=== PATIENT | female | born 1950 | race Caucasian/White ===

== ENCOUNTER 2020-11-20 08:28 | Outpatient (REF) | payer MEDICARE, OTHER, SELFPAY | END 2020-11-20 08:29 | disposition home or self-care (01) | LOC: HO.LAB 08:28 | PROVIDERS: PCP Internal Medicine; Visit Provider Internal Medicine | DX: Z20.822 Contact with and (suspected) exposure to COVID-19 (principal) | CPT/HCPCS: C9803; U0003; U0005 ==

== ENCOUNTER 2023-06-29 19:19 | Emergency (ER) | payer MEDICARE, OTHER, SELFPAY ==
--- NOTE | ~2023-06-29 | CT_ITS ---
EXAMINATION: CT HEAD WITHOUT CONTRAST CLINICAL INFORMATION: Fall. Head trauma. COMPARISON: Previous head CT most recent January 2019 TECHNIQUE: Contiguous axial imaging was performed from the skull base to vertex without intravenous administration of contrast. This CT examination was performed using dose optimization techniques as appropriate, variously including the following: *Automated exposure control *Adjustment of mA and/or kV according to patient size (this includes techniques or standardized protocols for targeted exams where dose is matched to indication/reason for exam; i.e. extremities or head) *Use of iterative reconstruction technique DLP: 568 mGy-cm FINDINGS: There is no evidence of an extra-axial collection. There is no evidence of intra or extra-axial hemorrhage. The ventricles and extra-axial CSF spaces are prominent suggestive of generalized atrophy. There is nonspecific periventricular white matter disease. No mass, mass effect or infarct. Review of bone windows is normal. No skull fracture. Visualized paranasal sinuses, mastoid air cells and middle ears are clear. CT/CT head/brain wo IV con IMPRESSION: No acute findings.
--- NOTE | ~2023-06-29 | CT_ITS ---
EXAMINATION: CT CERVICAL SPINE WITHOUT CONTRAST CLINICAL INFORMATION: Fall. Head trauma. COMPARISON: Previous cervical spine CT January 2019 TECHNIQUE: Axial images through the cervical spine without IV contrast. Sagittal and coronal reconstructions on the technologist work station were performed. This CT examination was performed using dose optimization techniques as appropriate, variously including the following: *Automated exposure control *Adjustment of mA and/or kV according to patient size (this includes techniques or standardized protocols for targeted exams where dose is matched to indication/reason for exam; i.e. extremities or head) *Use of iterative reconstruction technique DLP: 221 mGy-cm FINDINGS: There is mild 2 mm anterior subluxation of C3 with respect to C4 and 4 mm anterior subluxation of C4 with respect to C5. Bone alignment is otherwise normal. No fracture or dislocation. Degenerative spondylosis at C3-C4 C4-C5 C5-C6 and C6-C7. Disc space narrowing at C5-C6 and C6-C7. Mild bilateral facet arthritis. Prevertebral soft tissues are normal. Lung apices are clear. CT/CT cervical spine wo IV con IMPRESSION: Degenerative changes. No fracture or dislocation. Fleischner guidelines were followed.
[2023-06-29 19:40] VITALS: BP 124/70; PULSE 100; RESP 18; TEMP 37; O2SAT 97; BMI 21.8
--- NOTE | 2023-06-29 19:41 | ED.FALL ---
HPI - Fall General Chief Complaint: Fall Stated Complaint: fell bump on back of head Time Seen by Provider: 06/30/23 00:10 Source: patient and family ( spouse) Mode of arrival: ambulatory Limitations: no limitations History of Present Illness HPI Narrative: 72-year-old female walked into the emergency department with her spouse for evaluation after mechanical fall with head injury. Patient slipped on a rug in the bathroom causing her to fall backward hitting the back of her head on the table, no LOC, patient also landed on her buttock area, patient is able to ambulate, no nausea, no vomiting, feels mild headache, patient feels hematoma on the back of her head. Patient is not AC therapy only takes daily baby aspirin. Related Data Allergies Allergy/AdvReac Type Severity Reaction Status Date / Time acetaminophen [From PERCOCET] Allergy Intermediate NAUSEA & Verified 06/29/23 19:42 VOMITING oxycodone [OXYCODONE] Allergy Intermediate VOMITING Verified 06/29/23 19:42 Review of Systems Review of Systems: All other systems are reviewed and are negative Constitutional: Reports as per HPI and Reports no additional constitutional complaints Eyes: Reports as per HPI and Reports no additional eye complaints Reports system reviewed and no additional complaints, except as documented Cardiovascular: Reports as per HPI and Reports no additional cardiovascular complaints Respiratory: Reports as per HPI and Reports no additional respiratory complaints Gastrointestinal: Reports as per HPI and Reports no additional gastrointestinal complaints Genitourinary: Reports no additional female genitourinary complaints Musculoskeletal: Reports no additional musculoskeletal complaints Skin/Breast: Reports system reviewed and no additional complaints, except as docu Psychiatric: Reports no additional psychiatric complaints Endocrine: Reports no additional endocrine complaints Hematologic/Lymphatic: Reports no additional hematologic/lymphatic complaints Allergic/Immunologic: Reports no additional allergic/immunologic complaints Reports system reviewed and no additional complaints, except as documented and Reports Abnormal speech present [facility] Social History Social History Alcohol intake: never Physical Exam Vital Signs: Vital Signs: Last Vital Signs Temp 97.9 F 06/29/23 21:43 Pulse 83 06/29/23 21:43 Resp 18 06/29/23 21:43 BP 105/54 L 06/29/23 21:43 Pulse Ox 98 06/29/23 21:43 O2 Del Method Room Air 06/29/23 21:43 BMI result Body Mass Index 21.8 Vital signs have been reviewed and appear to be correct. Blood pressure elevated. Heart rate normal. Respiratory rate normal. Temperature normal. Oxygen saturation normal. Appearance: Alert. Oriented X3. No acute distress. Head: Mild tenderness to the occipital area with small hematoma, no step-off, no deformity. No Ford signs noted. No raccoon eyes noted Eyes: PERRLA. EOMI. Conjunctiva and sclera normal. Eyelids normal. ENT: TM's Normal. Pharynx normal. Uvula midline. Moist mucous membranes. No trismus noted. No drooling noted. No muffled voice noted. Neck: Normal inspection. Neck supple. FROM. No adenopathy. Thyroid Normal. No meningeal signs. No neck mass noted. CVS: Normal heart rate and rhythm. Heart sound normal. No murmurs noted. Pulses normal throughout. Respiratory: No respiratory distress. Painless inspiration. Breath sounds normal. No wheezes/rales/rhonchi noted. Chest nontender. No accessory muscle usage noted or decreased air movement noted. Abdomen: Soft and nontender. Bowel sounds normal in all 4 quadrants. No distention noted. No organomegaly noted. No visible injury noted. Back: No CVA tenderness. Full range of motion noted. Skin: Skin warm and dry. Normal skin color. Normal skin turgor. No rashes/lesions/lacerations noted. Extremities: No lower extremity edema. Extremities exhibit normal range of motion. Extremities nontender. Neuro: Oriented X 3. Cranial nerve exam: II-XII are grossly intact No motor deficit. No sensory deficit. Reflexes normal. Course Course Course Narrative: This is a rapid medical exam completed by Nimesh [employer]ATORY [employer] SPECIALIST: Additional HPI, ROS, PE not included below will be deferred to primary provider. Slipped on a rug and hit her posterior head on a table. Plan: CT head and neck Reevaluation(s) Reevaluation #1: 72-year-old female s/p mechanical fall with head injury. GCS 15, normal neuro exam, head CT is unremarkable for intracranial bleed, cervical spine is unremarkable for C-spine injury. will discharge to follow-up with PCP. Time: 00:22 Medical Decision Making Differential Diagnosis Differential Diagnoses: The differential diagnosis associated with the presentation includes ( Intracranial bleed, epidural hematoma, subdural hematoma, skull fracture, cervical spine fracture, cervical spine subluxation.) Admission/Observation Consideration of admission/observation: Escalation of care including admission/observation considered Independent Interpretation I performed an independent interpretation of an: CT Scan ( Head/C-spine CT: No acute findings in the head or cervical spine.) Radiology Impression Discussion of test interpretation with radiology: I have reviewed the radiologist's reading. Discharge Plan Discharge Clinical Impression: Accident due to mechanical fall without injury, Closed head injury, Hematoma of occipital region of scalp Patient Disposition: Home, Self-Care Instructions: Head Injury (ED), Scalp Contusion in Adults (ED) Referrals: Reggie Cash MD [Primary Care Provider] - Print Language: Azerbaijani
[2023-06-29 21:43] VITALS: BP 105/54; PULSE 83; RESP 18; TEMP 36.6; O2SAT 98
[2023-06-30 00:51] VITALS: BP 105/54; PULSE 83; RESP 18; TEMP 36.6; O2SAT 98
== END 2023-06-30 00:52 | disposition home or self-care (01) ==
PROVIDERS: Emergency Provider Emergency Medicine; PCP Internal Medicine
DX: S00.03XA Contusion of scalp, initial encounter (principal); M54.2 Cervicalgia; R51.9 Headache, unspecified; W01.10XA Fall on same level from slipping, tripping and stumbling with subsequent striking against unspecified object, initial encounter; Y93.9 Activity, unspecified; Y92.002 Bathroom of unspecified non-institutional (private) residence as the place of occurrence of the external cause; Y99.8 Other external cause status
CPT/HCPCS: 70450; 72125; 99284

== ENCOUNTER 2025-01-31 11:47 | Outpatient (AMB) | payer MEDICARE, OTHER, SELFPAY ==
--- NOTE | 2025-01-31 11:51 | MHC.OFFVIS ---
Vital Signs 01/31/25 12:00 Height 5 ft 6 in Weight 130 lb BMI 21.0 BP 105/62 Blood Pressure Location Lt brachial Respiration 16 Pulse 71 Pulse Source Pulse Oximeter Pulse Oximetry (%) 98 Oxygen Delivery Method Room Air Intake Visit Reasons: re est care tremor Phlebotomy Technician Required: No Allergies acetaminophen (From PERCOCET) Allergy (Intermediate, Verified 01/31/25 12:01) NAUSEA & VOMITING oxycodone (OXYCODONE) Allergy (Intermediate, Verified 01/31/25 12:01) VOMITING HPI Comments Details: Mayra is a 74-year-old female patient with a past medical history of anxiety, benign essential tremor, stroke, migraine, hypothyroidism, neuropathy and presumed long COVID who is here today to establish care. I was following her at [facility] and I last saw her on 10/09/2024. To review: She has been followed by Neurology at [facility] in the past for an essential tremor for which she has been taking propranolol and symptoms has been stable. She also has a history of small fiber neuropathy diagnosed by Dr. Streeter but never confirmed by a skin biopsy. Symptoms have progressively gotten slightly worse and her workup has been normal in terms of EEGs and ankle-brachial indexes. She has symptoms mostly to her right foot with sensory impairment often causing imbalance. She will sometimes have intermittent numbness and tingling to her face predominantly to the right side as well and can fluctuate to her upper and lower extremities. We have tried duloxetine for her symptoms that are also overlapping with her anxiety but unfortunately this caused nightmares. She also has been tried on fluoxetine and buspirone which caused adverse effects as well. She has had concerns regarding her memory in the past and did see neuropsych who recommended starting donepezil 5 mg for memory with potential concerns for neurocognitive disease. She has not been consistent with this but does have an upcoming appointment with the memory clinic at [facility] for further evaluation. She requested an appointment to see me to not only establish care but also to discuss some headaches she has been experiencing. She does note that she has had increased stress due to her 's health and she believes that her headaches has been triggered by stress. Headaches have been predominantly to the left supraorbital area accompanied by nausea but no light or sound sensitivity. She was often awakening in the morning with them but she does have a history of Fioricet which resolved her pain. She had stopped taking her riboflavin for a short period of time which she does believe may have contributed to the worsening of the headaches but she is now taking it again and headaches seem to be improving some. She also notes that last week while in the parking lot at the grocery store she was loading up groceries into her back seat when she had a brief loss of consciousness. She was lowering the groceries down and then awoke having had fallen into the back seat. This was witnessed by a stores clerk. There were no abnormal movements. There was no postictal state and the brief loss of consciousness lasted only a few sec. She has had previous loss of consciousness episodes in the past likely triggered by things such as pain. She tells me that she continues on propranolol 10 mg twice daily and feels that her tremors are well-controlled on this dose. In terms of her neuropathy, she still has paresthesias to her right foot intermittently but she denies any new paresthesias or recent falls. Sleeps well on most nights but a few times per week has disrupted sleep. She also notes some right hand weakness and numbness intermittently that started recently. Symptoms are only from the wrist down. Prior workup: MRI of the brain 06/15/2023: No acute/subacute infarct, mass, hemorrhage, or other acute intracranial abnormality. Mild T2 FLAIR hyperintensities in the white matter, nonspecific. Labs: Lyme study, Sjogren antibodies, vitamin-E, syphilis, SPEP, UPEP, immunofixation, and light chains all of which were normal EMG study 11/09/2023 to the left upper extremity: Normal study EMG study 11/16/2023 to the right lower extremity: Normal Ankle-brachial index 01/16/2024 ETHAN was normal though toe brachial indices slightly abnormal on the right side 0.66. She also had discoloration to this toe and I sent her to vascular who did not feel her symptoms are related to vascular abnormalities. 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 Donepezil, escitalopram, and a regular exercise regimen recommended at that time. [facility] Medical History (Updated 02/03/25 @ 13:04 by Farrah Guallpa CNP) Peripheral neuropathy MCI (mild cognitive impairment) Hypothyroidism Dysuria Carotid artery stenosis Benign positional vertigo Benign essential tremor Anxiety Social History Alcohol intake: never Review of Systems Const All systems reviewed & are unremarkable except as noted in HPI and below Physical Exam Vital Signs: Last Vital Signs Pulse 71 01/31/25 12:00 Resp 16 01/31/25 12:00 BP 105/62 01/31/25 12:00 Pulse Ox 98 01/31/25 12:00 Oxygen Delivery Method Room Air 01/31/25 12:00 BMI result Body Mass Index 21.0 Const General: cooperative, healthy appearing, comfortable and no acute distress Nutritional Appearance: well nourished Orientation/consciousness: patient oriented x3 Limitations: no limitations HEENT Head: Yes normal to inspection and Yes normocephalic Eyes General: appearance normal, both eyes and all related structures Visual Daniels: normal visual daniels by confrontation Alignment and Position: alignment normal Periorbital: periorbital findings normal Eyelids: Yes eyelids normal Conjunctivae: conjunctivae normal Sclerae: sclerae normal Neuro General: patient oriented x3 Cranial nerves: Yes CN's II-XII intact bilaterally and Yes Facial sensation intact/muscles of mastication intact Cognition (Neuro): normal cognition Gait exam (Neuro): Normal gait present Motor exam (neuro): 5/5 motor strength present throughout and no tremor noted Sensory Exam: double simultaneous stimulation for sensation normal Deep tendon reflexes (DTR's): Right triceps reflex intensity grade: 2+, Left triceps reflex intensity grade: 2+, Rt Biceps (C5, C6): 2+, Left biceps reflex intensity grade: 2+, Right brachioradialis reflex intensity grade: 2+, Left brachioradialis reflex intensity grade: 2+, Right patellar reflex intensity grade: 2+, Left patellar reflex intensity grade: 2+, Right ankle reflex intensity grade: 2+ and Left ankle reflex intensity grade: 2+ Romberg Test: Negative Pupils: Normal pupillary reactivity/response: bilateral Psych Appearance: grossly normal Mental Status: mental status grossly normal Speech and movement: Normal speech and movement present and Clear speech present Affect: normal affect Attitude: cooperative Thought process: Normal thought process present Thought content: Normal thought content present Insight: Good insight present (Psych) Judgement: Good judgement present (Psych) Assessment & Plan Assessment & Plan (1) Benign essential tremor: Code(s): G25.0 - Essential tremor Category: Medical (2) Syncope: Code(s): R55 - Syncope and collapse Category: Medical (3) Frequent headaches: Code(s): R51.9 - Headache, unspecified Category: Medical (4) Small fiber neuropathy: Code(s): G62.9 - Polyneuropathy, unspecified Category: Medical (5) Long COVID: Code(s): U09.9 - Post COVID-19 condition, unspecified Category: Medical Plan Mayra is a 74-year-old female patient with a past medical history of anxiety, benign essential tremor, stroke, migraine, hypothyroidism, neuropathy and presumed long COVID who is here today to establish care. Tremor- Well controlled on propranolol SFN: We have tried several therapies in the past with side effects. For now, she is tolerating without any symptomatic management. Memory: Upcoming visit with the [facility] memory clinic. I will allow them to assess Mirtha [email or web address]. happy to take over care for this in the future Headaches: Intermittent but improving since she started taking the riboflavin more consistently. I have advised for her to add magnesium 400 mg nightly which can also benefit her stress and sleep. Syncopal event: Event does not sound descriptive of seizure and I will start with Holter monitor to rule out cardiac event. Could in the future consider EEG she continues to have syncopal episodes. Most likely vasovagal given that she was lifting heavy objects during the event. -magnesium oxide 400mg at bedtime -continue riboflaven -holter monitor -consider EEG if she has a recurrent event or there are further concerns for seizure activity -consider EMG RUE for ?CTS Orders: Orders ECG holter monitor 48 hour Today R55 - Syncope and collapse Medications: New magnesium oxide 400 mg PO DAILY 90 tabs 3RF 90 days Coding Level of Care Code New Pt Level 4 (02820) Diagnoses Benign essential tremor G25.0 Syncope R55 Frequent headaches R51.9 Small fiber neuropathy G62.9 Long COVID U09.9
[2025-01-31 12:00] VITALS: BP 105/62; PULSE 71; RESP 16; O2SAT 98; BMI 21.0
== END 2025-01-31 12:44 | disposition home or self-care (01) ==
LOC: HO.HSM 11:47
PROVIDERS: PCP Internal Medicine; Visit Provider Nurse Practitioner
DX: G25.0 Essential tremor (principal); R55 Syncope and collapse; R51.9 Headache, unspecified; G62.9 Polyneuropathy, unspecified; U09.9 Post COVID-19 condition, unspecified
CPT/HCPCS: 99204

== ENCOUNTER → 2025-01-31 11:47 | Outpatient (BNVA) | payer MEDICARE, OTHER, SELFPAY | PROVIDERS: PCP Internal Medicine; Visit Provider Nurse Practitioner | DX: R55 Syncope and collapse (principal); G25.0 Essential tremor; R51.9 Headache, unspecified; G62.9 Polyneuropathy, unspecified; U09.9 Post COVID-19 condition, unspecified | CPT/HCPCS: 99202 ==

== ENCOUNTER → 2025-02-24 09:16 | Outpatient (REF) | payer MEDICARE, OTHER, SELFPAY | LOC: HO.CARD 09:16 | PROVIDERS: PCP Internal Medicine; Visit Provider Nurse Practitioner | DX: R55 Syncope and collapse (principal) | CPT/HCPCS: 93225 ==

== ENCOUNTER → 2025-02-24 09:18 | Outpatient (BNV) | payer MEDICARE, OTHER, SELFPAY | PROVIDERS: PCP Internal Medicine; Visit Provider Internal Medicine Cardiovascular Disease | DX: R55 Syncope and collapse (principal) | CPT/HCPCS: 93227 ==